=== PATIENT | female | born 1990 | race American Indian/Alaskan Native ===

== ENCOUNTER 2020-01-06 07:05 | Outpatient (CLI) | payer MEDICAID ==
[2020-01-06] MEDS ORDERED: ACETAMINOPHEN W/CODEINE 300-30 MG TAB PO ONE ×2 (08:00→13:00)
[2020-01-06] MEDS ORDERED: hydrOXYzine PAMOATE 25 MG CAP PO ONE ×2 (08:00→13:00)
[2020-01-06 12:21] VITALS: BP 130/75
== END 2020-01-06 13:07 | disposition home or self-care (01) ==
LOC: TRG 07:05 → APU 07:08 → TRG 13:07
PROVIDERS: ATTEND Obstetrics & Gynecology
DX: O47.1 False labor at or after 37 completed weeks of gestation (principal); Z3A.39 39 weeks gestation of pregnancy
CPT/HCPCS: 59025; Q0177